=== PATIENT | female | born 1985 | race Two or more races ===

== ENCOUNTER 2018-01-08 17:05 | Emergency (ER) | payer MEDICAID ==
[~2018-01-08] VITALS: Ht 172.7 cm; Wt 99.3 kg
--- NOTE | 2018-01-08 17:05 | NUR ---
BIB SELF W C/O R SIDED BODY PAIN S/P FELL OFF STAIRS, 31WKS . TO ER BED 2, HOOKED TO MONITOR, AWAITING MD EASLEY
--- NOTE | 2018-01-08 17:28 | NUR ---
PA AT BEDSIDE
--- NOTE | 2018-01-08 17:40 | NUR ---
US TECH AT BEDSIDE
[2018-01-08] MEDS ORDERED: ACETAMINOPHEN 325 MG TABLET PO ONE (18:00)
[2018-01-08] MEDS ORDERED: ACETAMINOPHEN 325 MG TABLET ONE (18:09)
--- NOTE | 2018-01-08 18:50 | NUR ---
PT LEFT W/O DISCHARGE INSTRUCTIONS. CORBIN HADDAD MADE AWARE.
[2018-01-08 19:22] VITALS: BP 114/71
== END 2018-01-08 18:50 | disposition home or self-care (01) ==
LOC: ER 17:06
DX: O26.893 Other specified pregnancy related conditions, third trimester (principal); Z3A.31 31 weeks gestation of pregnancy; S30.0XXA Contusion of lower back and pelvis, initial encounter; W10.8XXA Fall (on) (from) other stairs and steps, initial encounter; Y93.89 Activity, other specified; Y92.89 Other specified places as the place of occurrence of the external cause; Y99.8 Other external cause status
CPT/HCPCS: 76805; 99284; A4606; Z7610

== ENCOUNTER 2023-05-06 09:53 | Emergency (ER) | payer MEDICAID ==
[~2023-05-06] VITALS: Ht 172.7 cm; Wt 90.7 kg
[2023-05-06 10:00] VITALS: BP 130/70; TEMP 99.2; O2SAT 96
[2023-05-06] MEDS ORDERED: LIDOCAINE 1% INJ 50 ML MDV IJ ONE (11:57)
[2023-05-06] MEDS ORDERED: SULF1TAB48 PO (12:24)
[2023-05-06] MEDS ORDERED: IBUP-1955 PO (12:24)
[2023-05-06] MEDS ORDERED: CEPH500C2 PO (12:24)
== END 2023-05-06 12:27 | disposition home or self-care (01) ==
LOC: ER 09:58
DX: L02.416 Cutaneous abscess of left lower limb (principal); M79.652 Pain in left thigh
CPT/HCPCS: 99284; 10060; J3490